=== PATIENT | female | born 1935 | race Caucasian/White ===

== ENCOUNTER 2019-12-26 13:03 | Inpatient (IN) ==
[2019-12-26] MEDS ORDERED: Naloxone 0.4 MG/ML INJ IVP PRN (15:50)
[2019-12-26] MEDS ORDERED: Ondansetron 4 MG/2 ML VIAL IVP PRN (15:50)
[2019-12-26 16:20] LABS: Basophils % 0.5 %; Eosinophils % 0.8 %; Hematocrit 44.7 % (35.3-44.9); Immature Granulocytes % 0.3 % (0-4); Lymphocytes # 0.7 K/mcL (0.6-4.6); Lymphocytes % 19.1 %; Mean Corpuscular HGB Conc 31.3 g/dL (31.6-35.5); Mean Corpuscular Hemoglobin 29.9 pg (28.0-33.3); Mean Corpuscular Volume 95.5 fL (83.0-100.0); Mean Platelet Volume 10.2 fL (9.4-12.4); Monocytes # 0.2 K/mcL (0.0-1.3); Monocytes % 4.5 %; Neutrophils # 2.8 K/mcL (1.6-8.9); Platelet Count 170 K/mcL (140-400); Red Blood Count 4.68 M/mcL (3.82-4.97); Red Cell Distribution Width 13.9 % (11.5-14.5); Segmented Neutrophils % 74.8 %; White Blood Count 3.8 K/mcL (4.3-11.1)
[2019-12-26 16:25] LABS: VBG HCO3 37 mEq/L (21-27); VBG PCO2 69 mmHg (41-51); VBG PH 7.34 pH Units (7.32-7.42); VBG PO2 49 mmHg (25-50)
[2019-12-26 16:43] LABS: BUN/Creatinine Ratio 22 (6-26); Blood Urea Nitrogen 20 mg/dL (8-23); Calcium 9.5 mg/dL (8.6-10.3); Carbon Dioxide 36 mEq/L (23-29); Chloride 98 mEq/L (98-107); Glucose 132 mg/dL (70-105); Magnesium 1.3 mg/dL (1.6-2.6); Osmolality,Calculated 294 (280-300); Potassium 3.7 mEq/L (3.5-5.1); Sodium 140 mEq/L (136-145); Troponin I 0.03 ng/mL (< 0.04); eGFR For African Americans > 60 (> 60); eGFR For Non-African Americans 59 (> 60)
[2019-12-26] MEDS ORDERED: Ipratropium/Albuterol Neb 3 ML IH PRN (18:23)
[2019-12-26] MEDS ORDERED: Perflutren Lipid Microsphere 1.3 ML in 0.9 % Sodium Chloride 8.7 ML IVP ONE (18:24)
[2019-12-26] MEDS: Furosemide 40 MG/4 ML VIAL IVP SCH (19:41)
[2019-12-26] MEDS: Acetaminophen 325 MG TABLET PO PRN (19:53)
[2019-12-26] MEDS ORDERED: *HR* OxyCODONE Immed Rel 5 MG TABLET PO ONE (20:07)
[2019-12-26] MEDS: *HR* Heparin 5,000 UNIT/ML VIAL SQ SCH (22:52)
[2019-12-26] MEDS: carvediloL 6.25 MG TABLET PO SCH (22:52)
[2019-12-27 04:44] LABS: VBG HCO3 36 mEq/L (21-27); VBG PCO2 62 mmHg (41-51); VBG PH 7.37 pH Units (7.32-7.42); VBG PO2 51 mmHg (25-50)
[2019-12-27 04:55] LABS: Basophils % 0.3 %; Eosinophils % 0.2 %; Hematocrit 42.7 % (35.3-44.9); Hemoglobin 13.5 g/dL (11.5-15.4); Immature Granulocytes % 0.5 % (0-4); Lymphocytes # 1.1 K/mcL (0.6-4.6); Lymphocytes % 16.5 %; Mean Corpuscular HGB Conc 31.6 g/dL (31.6-35.5); Mean Corpuscular Hemoglobin 29.5 pg (28.0-33.3); Mean Corpuscular Volume 93.2 fL (83.0-100.0); Mean Platelet Volume 10.2 fL (9.4-12.4); Monocytes # 0.4 K/mcL (0.0-1.3); Monocytes % 5.3 %; Neutrophils # 5.1 K/mcL (1.6-8.9); Platelet Count 187 K/mcL (140-400); Red Blood Count 4.58 M/mcL (3.82-4.97); Red Cell Distribution Width 13.9 % (11.5-14.5); Segmented Neutrophils % 77.2 %; White Blood Count 6.6 K/mcL (4.3-11.1)
[2019-12-27 05:06] LABS: BUN/Creatinine Ratio 24 (6-26); Blood Urea Nitrogen 24 mg/dL (8-23); Calcium 9.3 mg/dL (8.6-10.3); Carbon Dioxide 37 mEq/L (23-29); Chloride 92 mEq/L (98-107); Glucose 126 mg/dL (70-105); Magnesium 1.7 mg/dL (1.6-2.6); Osmolality,Calculated 288 (280-300); Potassium 3.4 mEq/L (3.5-5.1); Sodium 136 mEq/L (136-145); eGFR For African Americans > 60 (> 60); eGFR For Non-African Americans 54 (> 60)
[2019-12-27] MEDS ORDERED: *HR* OxyCODONE Immed Rel 5 MG TABLET PO ONE (05:29)
[2019-12-27] MEDS: *HR* Heparin 5,000 UNIT/ML VIAL SQ SCH ×3 (05:41→21:17)
[2019-12-27] MEDS: carvediloL 6.25 MG TABLET PO SCH ×2 (10:45→17:46)
[2019-12-27] MEDS: Furosemide 40 MG/4 ML VIAL IVP SCH (10:48)
[2019-12-27] MEDS: Aspirin Enteric Coated 81 MG Tablet PO SCH (10:48)
[2019-12-27] MEDS: Acetaminophen 325 MG TABLET PO PRN (10:55)
[2019-12-27] MEDS: Gabapentin 400 MG CAPSULE PO SCH (21:12)
[2019-12-27] MEDS: traZODone 50 MG TABLET PO SCH (21:14)
[2019-12-28 01:32] LABS: Basophils % 0.3 %; Eosinophils % 0.3 %; Hematocrit 41.7 % (35.3-44.9); Hemoglobin 13.3 g/dL (11.5-15.4); Immature Granulocytes % 0.3 % (0-4); Lymphocytes # 1.4 K/mcL (0.6-4.6); Mean Corpuscular HGB Conc 31.9 g/dL (31.6-35.5); Mean Corpuscular Hemoglobin 29.9 pg (28.0-33.3); Mean Corpuscular Volume 93.7 fL (83.0-100.0); Mean Platelet Volume 10.5 fL (9.4-12.4); Monocytes # 0.4 K/mcL (0.0-1.3); Monocytes % 6.6 %; Neutrophils # 4.6 K/mcL (1.6-8.9); Platelet Count 180 K/mcL (140-400); Red Blood Count 4.45 M/mcL (3.82-4.97); Red Cell Distribution Width 14.2 % (11.5-14.5); Segmented Neutrophils % 71.5 %; White Blood Count 6.5 K/mcL (4.3-11.1)
[2019-12-28 01:36] LABS: VBG HCO3 34 mEq/L (21-27); VBG PCO2 54 mmHg (41-51); VBG PO2 111 mmHg (25-50)
[2019-12-28 01:44] LABS: BUN/Creatinine Ratio 33 (6-26); Blood Urea Nitrogen 28 mg/dL (8-23); Calcium 8.8 mg/dL (8.6-10.3); Carbon Dioxide 34 mEq/L (23-29); Chloride 98 mEq/L (98-107); Glucose 126 mg/dL (70-105); Magnesium 1.4 mg/dL (1.6-2.6); Osmolality,Calculated 293 (280-300); Potassium 4.1 mEq/L (3.5-5.1); Sodium 138 mEq/L (136-145); eGFR For African Americans > 60 (> 60); eGFR For Non-African Americans > 60 (> 60)
[2019-12-28] MEDS: *HR* Heparin 5,000 UNIT/ML VIAL SQ SCH ×3 (05:51→22:26)
[2019-12-28] MEDS: Acetaminophen 325 MG TABLET PO PRN ×2 (05:57→22:26)
[2019-12-28] MEDS: Ascorbic Acid 500 MG TABLET PO SCH (08:48)
[2019-12-28] MEDS: Furosemide 40 MG/4 ML VIAL IVP SCH (08:48)
[2019-12-28] MEDS: Aspirin Enteric Coated 81 MG Tablet PO SCH (08:50)
[2019-12-28] MEDS: Gabapentin 400 MG CAPSULE PO SCH ×3 (08:50→22:26)
[2019-12-28] MEDS: carvediloL 6.25 MG TABLET PO SCH ×2 (08:50→17:34)
[2019-12-28] MEDS: amLODIPine 5 MG TABLET PO SCH (08:52)
[2019-12-28] MEDS ORDERED: NON-FORMULARY MEDICATION 1 EACH EACH (Losartan/Hydrochlorothiazide [Losartan-Hctz 100-25 M PO SCH (09:00)
[2019-12-28] MEDS ORDERED: Perflutren Lipid Microsphere 1.3 ML in 0.9 % Sodium Chloride 8.7 ML IVP ONE (09:43)
[2019-12-28] MEDS: traZODone 50 MG TABLET PO SCH (22:26)
[2019-12-29] MEDS: *HR* Heparin 5,000 UNIT/ML VIAL SQ SCH ×3 (05:38→21:54)
[2019-12-29 07:10] LABS: Basophils % 0.3 %; Eosinophils % 0.5 %; Hematocrit 46.4 % (35.3-44.9); Hemoglobin 14.6 g/dL (11.5-15.4); Immature Granulocytes % 0.2 % (0-4); Lymphocytes # 1.4 K/mcL (0.6-4.6); Lymphocytes % 22.8 %; Mean Corpuscular HGB Conc 31.5 g/dL (31.6-35.5); Mean Corpuscular Hemoglobin 30.7 pg (28.0-33.3); Mean Corpuscular Volume 97.5 fL (83.0-100.0); Mean Platelet Volume 10.4 fL (9.4-12.4); Monocytes # 0.4 K/mcL (0.0-1.3); Monocytes % 6.2 %; Neutrophils # 4.3 K/mcL (1.6-8.9); Platelet Count 196 K/mcL (140-400); Red Blood Count 4.76 M/mcL (3.82-4.97); Red Cell Distribution Width 14.1 % (11.5-14.5); White Blood Count 6.1 K/mcL (4.3-11.1)
[2019-12-29 07:26] LABS: BUN/Creatinine Ratio 35 (6-26); Blood Urea Nitrogen 27 mg/dL (8-23); Calcium 9.2 mg/dL (8.6-10.3); Carbon Dioxide 34 mEq/L (23-29); Chloride 97 mEq/L (98-107); Glucose 107 mg/dL (70-105); Magnesium 1.9 mg/dL (1.6-2.6); Osmolality,Calculated 292 (280-300); Sodium 138 mEq/L (136-145); eGFR For African Americans > 60 (> 60); eGFR For Non-African Americans > 60 (> 60)
[2019-12-29] MEDS: Gabapentin 400 MG CAPSULE PO SCH ×3 (08:23→21:54)
[2019-12-29] MEDS: Ascorbic Acid 500 MG TABLET PO SCH (08:23)
[2019-12-29] MEDS: carvediloL 6.25 MG TABLET PO SCH ×2 (08:23→17:01)
[2019-12-29] MEDS: amLODIPine 5 MG TABLET PO SCH (08:23)
[2019-12-29] MEDS: Aspirin Enteric Coated 81 MG Tablet PO SCH (08:23)
[2019-12-29] MEDS: Furosemide 40 MG/4 ML VIAL IVP SCH (08:24)
[2019-12-29] MEDS: Acetaminophen 325 MG TABLET PO PRN ×2 (08:31→17:07)
[2019-12-29] MEDS: traZODone 50 MG TABLET PO SCH (21:54)
[2019-12-30] MEDS: Acetaminophen 325 MG TABLET PO PRN ×2 (00:01→07:33)
[2019-12-30 02:35] LABS: Basophils % 0.2 %; Eosinophils # 0.1 K/mcL (0.0-0.6); Eosinophils % 1.3 %; Hematocrit 40.9 % (35.3-44.9); Immature Granulocytes % 0.3 % (0-4); Lymphocytes # 1.5 K/mcL (0.6-4.6); Lymphocytes % 23.2 %; Mean Corpuscular HGB Conc 31.8 g/dL (31.6-35.5); Mean Corpuscular Hemoglobin 30.6 pg (28.0-33.3); Mean Corpuscular Volume 96.2 fL (83.0-100.0); Mean Platelet Volume 10.2 fL (9.4-12.4); Monocytes # 0.5 K/mcL (0.0-1.3); Monocytes % 8.2 %; Neutrophils # 4.2 K/mcL (1.6-8.9); Platelet Count 172 K/mcL (140-400); Red Blood Count 4.25 M/mcL (3.82-4.97); Red Cell Distribution Width 13.9 % (11.5-14.5); Segmented Neutrophils % 66.8 %; White Blood Count 6.3 K/mcL (4.3-11.1)
[2019-12-30 02:57] LABS: BUN/Creatinine Ratio 34 (6-26); Blood Urea Nitrogen 25 mg/dL (8-23); Calcium 8.3 mg/dL (8.6-10.3); Carbon Dioxide 33 mEq/L (23-29); Chloride 99 mEq/L (98-107); Glucose 123 mg/dL (70-105); Magnesium 1.7 mg/dL (1.6-2.6); Osmolality,Calculated 290 (280-300); Sodium 137 mEq/L (136-145); eGFR For African Americans > 60 (> 60); eGFR For Non-African Americans > 60 (> 60)
[2019-12-30] MEDS: *HR* Heparin 5,000 UNIT/ML VIAL SQ SCH (06:43)
[2019-12-30] MEDS: carvediloL 6.25 MG TABLET PO SCH (07:34)
[2019-12-30] MEDS: Aspirin Enteric Coated 81 MG Tablet PO SCH (07:34)
[2019-12-30] MEDS: Ascorbic Acid 500 MG TABLET PO SCH (07:34)
[2019-12-30] MEDS: Gabapentin 400 MG CAPSULE PO SCH (07:35)
[2019-12-30] MEDS: amLODIPine 5 MG TABLET PO SCH (07:36)
[2019-12-30 08:19] VITALS: BP 173/70
[2019-12-30] MEDS ORDERED: Furosemide 40 MG TABLET PO SCH (09:00)
== END 2019-12-30 12:31 | disposition home health service (06) | DRG 189 ==
LOC: 3ANU → SUATTDRO 15:29
PROVIDERS: ADMIT Pharmacist; ATTEND Pharmacist

== ENCOUNTER 2020-04-15 14:01 | Inpatient (IN) ==
[2020-04-15 14:46] LABS: Basophils % 0.3 %; Eosinophils # 0.1 K/mcL (0.0-0.6); Eosinophils % 1.8 %; Hematocrit 34.8 % (35.3-44.9); Hemoglobin 11.2 g/dL (11.5-15.4); Immature Granulocytes % 0.3 % (0-4); Lymphocytes # 1.4 K/mcL (0.6-4.6); Lymphocytes % 20.8 %; Mean Corpuscular HGB Conc 32.2 g/dL (31.6-35.5); Mean Corpuscular Hemoglobin 32.1 pg (28.0-33.3); Mean Corpuscular Volume 99.7 fL (83.0-100.0); Mean Platelet Volume 10.9 fL (9.4-12.4); Monocytes # 0.6 K/mcL (0.0-1.3); Monocytes % 9.6 %; Neutrophils # 4.4 K/mcL (1.6-8.9); Platelet Count 156 K/mcL (140-400); Red Blood Count 3.49 M/mcL (3.82-4.97); Red Cell Distribution Width 14.8 % (11.5-14.5); Segmented Neutrophils % 67.2 %; White Blood Count 6.6 K/mcL (4.3-11.1)
[2020-04-15] MEDS ORDERED: Furosemide 40 MG/4 ML VIAL IVP ONE (15:05)
[2020-04-15 15:07] LABS: Calcium 8.9 mg/dL (8.6-10.3); Potassium 3.7 mEq/L (3.5-5.1)
[2020-04-15 15:10] LABS: Troponin I 0.04 ng/mL (< 0.04)
[2020-04-15] MEDS ORDERED: Furosemide 80 MG in 0.9 % Sodium Chloride 50 ML IVPB ONE (16:25)
[2020-04-15] MEDS ORDERED: Ondansetron 4 MG/2 ML VIAL IVP PRN (16:52)
[2020-04-15] MEDS ORDERED: Naloxone 0.4 MG/ML INJ IVP PRN (16:52)
[2020-04-15] MEDS ORDERED: Ipratropium/Albuterol Neb 3 ML IH PRN (17:51)
[2020-04-15] MEDS: Furosemide 40 MG/4 ML VIAL IVP SCH (20:45)
[2020-04-15] MEDS: Gabapentin 400 MG CAPSULE PO SCH (20:45)
[2020-04-15] MEDS: traZODone 50 MG TABLET PO SCH (20:45)
[2020-04-15] MEDS: *HR* Heparin 5,000 UNIT/ML VIAL SQ SCH (20:45)
[2020-04-15] MEDS: *HR* HYDROcodone/Acet 5/325 mg TABLET PO PRN (20:45)
[2020-04-15] MEDS ORDERED: carvediloL 6.25 MG TABLET PO SCH (21:00)
[2020-04-16] MEDS ORDERED: *HR* OxyCODONE Immed Rel 5 MG TABLET PO ONE (01:15)
[2020-04-16 01:48] LABS: Basophils % 0.4 %; Eosinophils # 0.2 K/mcL (0.0-0.6); Eosinophils % 2.9 %; Hematocrit 40.5 % (35.3-44.9); Hemoglobin 12.7 g/dL (11.5-15.4); Immature Granulocytes % 0.4 % (0-4); Lymphocytes # 1.6 K/mcL (0.6-4.6); Lymphocytes % 21.1 %; Mean Corpuscular HGB Conc 31.4 g/dL (31.6-35.5); Mean Corpuscular Hemoglobin 31.5 pg (28.0-33.3); Mean Corpuscular Volume 100.5 fL (83.0-100.0); Mean Platelet Volume 11.2 fL (9.4-12.4); Monocytes # 0.6 K/mcL (0.0-1.3); Neutrophils # 5.1 K/mcL (1.6-8.9); Platelet Count 172 K/mcL (140-400); Red Blood Count 4.03 M/mcL (3.82-4.97); Red Cell Distribution Width 14.6 % (11.5-14.5); Segmented Neutrophils % 67.2 %; White Blood Count 7.6 K/mcL (4.3-11.1)
[2020-04-16 02:11] LABS: Calcium 9.3 mg/dL (8.6-10.3); Magnesium 1.3 mg/dL (1.6-2.6); Phosphorous 3.6 mg/dL (2.7-4.5); Potassium 3.1 mEq/L (3.5-5.1)
[2020-04-16] MEDS ORDERED: *HR* Labetalol 20 MG/4 ML SYRINGE IVP ONE (04:22)
[2020-04-16] MEDS ORDERED: NIFEdipine 10 MG CAPSULE PO ONE ×2 (05:55→19:46)
[2020-04-16] MEDS: *HR* Heparin 5,000 UNIT/ML VIAL SQ SCH ×2 (06:02→18:48)
[2020-04-16] MEDS: *HR* HYDROcodone/Acet 5/325 mg TABLET PO PRN ×2 (07:23→18:52)
[2020-04-16] MEDS: Aspirin Enteric Coated 81 MG Tablet PO SCH (07:54)
[2020-04-16] MEDS: Furosemide 40 MG/4 ML VIAL IVP SCH ×2 (07:55→20:28)
[2020-04-16] MEDS: Gabapentin 400 MG CAPSULE PO SCH ×3 (07:55→20:28)
[2020-04-16] MEDS: carvediloL 6.25 MG TABLET PO SCH ×2 (07:55→15:56)
[2020-04-16] MEDS ORDERED: Potassium Chloride 40 MEQ, Lidocaine 1% 2 ML in 0.9 % Sodium Chloride 500 ML IVPB ONE (08:51)
[2020-04-16] MEDS ORDERED: amLODIPine 5 MG TABLET PO SCH (09:00)
[2020-04-16] MEDS: Nystatin POWDER 30 GM BOTTLE TP SCH ×2 (15:35→18:52)
[2020-04-16] MEDS: traZODone 50 MG TABLET PO SCH (20:28)
[2020-04-17] MEDS ORDERED: Acetaminophen IV 1,000 MG/100 ML INFUS..BTL IVPB ONE (00:54)
[2020-04-17] MEDS ORDERED: *HR* Metoprolol 5 MG/5 ML VIAL IVP ONE (03:15)
[2020-04-17] MEDS: *HR* Heparin 5,000 UNIT/ML VIAL SQ SCH (04:06)
[2020-04-17] MEDS: *HR* HYDROcodone/Acet 5/325 mg TABLET PO PRN (09:01)
[2020-04-17] MEDS: Aspirin Enteric Coated 81 MG Tablet PO SCH (09:01)
[2020-04-17] MEDS: Nystatin POWDER 30 GM BOTTLE TP SCH (09:02)
[2020-04-17] MEDS: Furosemide 40 MG/4 ML VIAL IVP SCH (09:02)
[2020-04-17] MEDS: carvediloL 6.25 MG TABLET PO SCH (09:02)
[2020-04-17] MEDS: Gabapentin 400 MG CAPSULE PO SCH (09:02)
[2020-04-17 10:05] LABS: Basophils % 0.4 %; Eosinophils # 0.2 K/mcL (0.0-0.6); Eosinophils % 2.3 %; Hematocrit 40.4 % (35.3-44.9); Hemoglobin 12.7 g/dL (11.5-15.4); Immature Granulocytes % 0.4 % (0-4); Lymphocytes # 1.4 K/mcL (0.6-4.6); Lymphocytes % 17.5 %; Mean Corpuscular HGB Conc 31.4 g/dL (31.6-35.5); Mean Corpuscular Hemoglobin 31.7 pg (28.0-33.3); Mean Corpuscular Volume 100.7 fL (83.0-100.0); Mean Platelet Volume 10.4 fL (9.4-12.4); Monocytes # 0.6 K/mcL (0.0-1.3); Monocytes % 7.1 %; Neutrophils # 5.7 K/mcL (1.6-8.9); Platelet Count 197 K/mcL (140-400); Red Blood Count 4.01 M/mcL (3.82-4.97); Red Cell Distribution Width 14.2 % (11.5-14.5); Segmented Neutrophils % 72.3 %; White Blood Count 7.8 K/mcL (4.3-11.1)
[2020-04-17 10:23] LABS: BUN/Creatinine Ratio 24 (6-26); Blood Urea Nitrogen 20 mg/dL (8-23); Calcium 9.1 mg/dL (8.6-10.3); Carbon Dioxide 38 mEq/L (23-29); Chloride 96 mEq/L (98-107); Glucose 139 mg/dL (70-105); Magnesium 1.7 mg/dL (1.6-2.6); Osmolality,Calculated 297 (280-300); Potassium 3.4 mEq/L (3.5-5.1); Sodium 141 mEq/L (136-145); eGFR For African Americans > 60 (> 60); eGFR For Non-African Americans > 60 (> 60)
[2020-04-17 10:38] VITALS: BP 147/64
== END 2020-04-17 14:32 | disposition home health service (06) | DRG 291 ==
LOC: 3NENU 14:01 → EMEROOARM 14:01 → SUATTDRO 19:19 → 3NENU 20:22
PROVIDERS: ADMIT Internal Medicine; ATTEND Family Medicine

== ENCOUNTER 2020-06-21 17:24 | Inpatient (IN) ==
[2020-06-21 18:29] LABS: Basophils % 0.3 %; Eosinophils # 0.1 K/mcL (0.0-0.6); Eosinophils % 2.2 %; Hematocrit 38.5 % (35.3-44.9); Hemoglobin 11.8 g/dL (11.5-15.4); Immature Granulocytes % 0.3 % (0-4); Lymphocytes # 1.4 K/mcL (0.6-4.6); Lymphocytes % 22.5 %; Mean Corpuscular HGB Conc 30.6 g/dL (31.6-35.5); Mean Corpuscular Hemoglobin 30.3 pg (28.0-33.3); Mean Corpuscular Volume 98.7 fL (83.0-100.0); Mean Platelet Volume 11.4 fL (9.4-12.4); Monocytes # 0.5 K/mcL (0.0-1.3); Monocytes % 7.5 %; Neutrophils # 4.3 K/mcL (1.6-8.9); Platelet Count 191 K/mcL (140-400); Red Cell Distribution Width 12.7 % (11.5-14.5); Segmented Neutrophils % 67.2 %; White Blood Count 6.4 K/mcL (4.3-11.1)
[2020-06-21 18:55] LABS: ABG Base Excess 5 mEq/L (-2 to 3); ABG HCO3 33 mEq/L (21-27); ABG Oxygen Saturation 96 % (95-98); ABG PCO2 62 mmHg (35-45); ABG PH 7.33 pH Units (7.32-7.45); ABG PO2 94 mmHg (85-104); ABG TCO2 35 mEq/L (20-26)
[2020-06-21 19:12] LABS: Potassium 4.9 mEq/L (3.5-5.1); Troponin I 0.03 ng/mL (< 0.04)
[2020-06-21 19:22] LABS: Adenovirus Not Detected (Not Detect); Bordetella Pertussis Not Detected (Not Detect); Chlamydophila pneumoniae Not Detected (Not Detect); Coronavirus 229E Not Detected (Not Detect); Coronavirus HKU1 Not Detected (Not Detect); Coronavirus NL63 Not Detected (Not Detect); Coronavirus OC43 Not Detected (Not Detect); Human Metapneumovirus Not Detected (Not Detect); Human Rhinovirus/Enterovirus Not Detected (Not Detect); Influenza A Subtype 2009 H1 Not Detected (Not Detect); Influenza B Not Detected (Not Detect); Mycoplasma pneumoniae Not Detected (Not Detect); Parainfluenza Virus 1 Not Detected (Not Detect); Parainfluenza Virus 2 Not Detected (Not Detect); Parainfluenza Virus 3 Not Detected (Not Detect); Parainfluenza Virus 4 Not Detected (Not Detect); Respiratory Syncytial Virus Not Detected (Not Detect); SARS-CoV-2 Not Detected (Not Detect)
[2020-06-21] MEDS ORDERED: Furosemide 40 MG/4 ML VIAL IVP ONE (20:05)
[2020-06-21] MEDS ORDERED: Isovue-370 500 ML BOTTLE IVP ONE (20:30)
[2020-06-21] MEDS ORDERED: *HR* Heparin 5,000 UNIT/ML VIAL IVP PRN ×2 (20:35)
[2020-06-21] MEDS ORDERED: *HR* Heparin 5,000 UNIT/ML VIAL IVP ONE (20:35)
[2020-06-21] MEDS: Heparin 25,000UNIT/250ML 1/2NS 25,000 UNIT/250 ML IV.SOLN IVC SCH (21:24)
[2020-06-21 21:51] LABS: Hematocrit 38.9 % (35.3-44.9); Hemoglobin 12.1 g/dL (11.5-15.4); Mean Corpuscular HGB Conc 31.1 g/dL (31.6-35.5); Mean Corpuscular Hemoglobin 30.9 pg (28.0-33.3); Mean Corpuscular Volume 99.2 fL (83.0-100.0); Mean Platelet Volume 11.4 fL (9.4-12.4); Platelet Count 179 K/mcL (140-400); Red Blood Count 3.92 M/mcL (3.82-4.97); Red Cell Distribution Width 12.5 % (11.5-14.5); White Blood Count 5.9 K/mcL (4.3-11.1)
[2020-06-21 21:53] LABS: Heparin anti-factor XA UFH < 0.04 IU/mL (0.30-0.70)
[2020-06-21 21:54] LABS: INR 1.1; Prothrombin Time 12.6 Seconds (9.4-12.1)
[2020-06-21] MEDS ORDERED: tiZANidine 4 MG TABLET PO PRN (23:20)
[2020-06-22] MEDS ORDERED: Perflutren Lipid Microsphere 1.3 ML in 0.9 % Sodium Chloride 8.7 ML IVP PRN (00:15)
[2020-06-22 01:42] LABS: Bilirubin,Urine Negative (Negative); Blood,Urine Large (Negative); Clarity,Urine Clear (Clear); Color,Urine Colorless (Yellow); Glucose,Urine (UA) Normal (Normal); Hyaline Casts,Urine Few per lpf (None Seen); Ketones,Urine Negative (Negative); Leukocyte Esterase,Urine Negative (Negative); Nitrite,Urine Negative (Negative); Protein,Urine Negative (Neg-Trace); RBC,Urine TNTC per hpf (0-3); Specific Gravity,Urine 1.009 (1.010-1.025); Urobilinogen,Urine Normal (Normal); WBC,Urine 0-3 per hpf (0-3)
[2020-06-22] MEDS ORDERED: Furosemide 40 MG/4 ML VIAL ONE (02:45)
[2020-06-22 02:58] LABS: ABG Base Excess 7 mEq/L (-2 to 3); ABG HCO3 34 mEq/L (21-27); ABG Oxygen Saturation 82 % (95-98); ABG PCO2 60 mmHg (35-45); ABG PH 7.36 pH Units (7.32-7.45); ABG PO2 50 mmHg (85-104); ABG TCO2 36 mEq/L (20-26)
[2020-06-22] MEDS: *HR* OxyCODONE/APAP 5/325 TABLET PO PRN ×3 (03:06→22:48)
[2020-06-22] MEDS ORDERED: Furosemide 40 MG/4 ML VIAL IV ONE (03:15)
[2020-06-22 04:59] LABS: Basophils % 0.4 %; Eosinophils # 0.2 K/mcL (0.0-0.6); Eosinophils % 2.2 %; Hematocrit 40.4 % (35.3-44.9); Hemoglobin 12.8 g/dL (11.5-15.4); Immature Granulocytes % 0.4 % (0-4); Lymphocytes # 1.9 K/mcL (0.6-4.6); Lymphocytes % 21.8 %; Mean Corpuscular HGB Conc 31.7 g/dL (31.6-35.5); Mean Corpuscular Hemoglobin 30.9 pg (28.0-33.3); Mean Corpuscular Volume 97.6 fL (83.0-100.0); Mean Platelet Volume 11.7 fL (9.4-12.4); Monocytes # 0.6 K/mcL (0.0-1.3); Monocytes % 6.6 %; Neutrophils # 5.8 K/mcL (1.6-8.9); Platelet Count 207 K/mcL (140-400); Red Blood Count 4.14 M/mcL (3.82-4.97); Red Cell Distribution Width 12.5 % (11.5-14.5); Segmented Neutrophils % 68.6 %; White Blood Count 8.5 K/mcL (4.3-11.1)
[2020-06-22 05:06] LABS: INR 1.2; Prothrombin Time 13.6 Seconds (9.4-12.1)
[2020-06-22 05:25] LABS: Activated Partial Thrombo Time > 360.0 Seconds (26.0-36.0); Heparin anti-factor XA UFH 1.86 IU/mL (0.30-0.70)
[2020-06-22 05:46] LABS: Bilirubin,Total 0.7 mg/dL (0.3-1.0); Calcium 9.4 mg/dL (8.6-10.3); Chol/HDL Ratio 2.5 (0-4.9); Globulin 3.9 g/dL (2.4-3.5); Magnesium 1.7 mg/dL (1.6-2.6); Potassium 3.9 mEq/L (3.5-5.1); Thyroid Stimulating Hormone 3.59 mcIU/mL (0.340-5.600); Total Protein 7.9 g/dL (6.4-8.9)
[2020-06-22] MEDS ORDERED: Furosemide 40 MG/4 ML VIAL IVP SCH (07:30)
[2020-06-22] MEDS: Aspirin Enteric Coated 81 MG Tablet PO SCH (08:28)
[2020-06-22] MEDS: Ascorbic Acid 500 MG TABLET PO SCH (08:28)
[2020-06-22] MEDS: Gabapentin 400 MG CAPSULE PO SCH ×3 (08:28→20:47)
[2020-06-22] MEDS ORDERED: Isovue-370 500 ML BOTTLE IVP ONE (10:16)
[2020-06-22 13:28] LABS: Influenza A PCR Negative (Negative); Influenza B PCR Negative (Negative); Resp. Syncytial Virus PCR Negative (Negative); SARS-CoV-2 by PCR (In House) Negative (Negative)
[2020-06-22] MEDS: traZODone 50 MG TABLET PO SCH (20:47)
[2020-06-22] MEDS: Heparin 25,000UNIT/250ML 1/2NS 25,000 UNIT/250 ML IV.SOLN IVC SCH (21:02)
[2020-06-23] MEDS: *HR* OxyCODONE/APAP 5/325 TABLET PO PRN ×3 (05:40→22:29)
[2020-06-23] MEDS: Magnesium Oxide 400 MG TABLET PO SCH (08:07)
[2020-06-23] MEDS: Gabapentin 400 MG CAPSULE PO SCH ×3 (08:07→20:22)
[2020-06-23] MEDS: Ascorbic Acid 500 MG TABLET PO SCH (08:07)
[2020-06-23] MEDS: Multivit/Ca/Min/Fe/FA 1 TAB TABLET PO SCH (08:07)
[2020-06-23] MEDS: amLODIPine 5 MG TABLET PO SCH (08:07)
[2020-06-23] MEDS: Aspirin Enteric Coated 81 MG Tablet PO SCH (08:07)
[2020-06-23] MEDS ORDERED: Artificial Tears SOLN 15 ML BOTTLE BOTH EYES PRN (08:51)
[2020-06-23] MEDS ORDERED: Furosemide 40 MG/4 ML VIAL IVP SCH (09:00)
[2020-06-23] MEDS: *HR* Heparin 5,000 UNIT/ML VIAL SQ SCH (16:01)
[2020-06-23] MEDS: Furosemide 40 MG/4 ML VIAL IVP SCH (16:01)
[2020-06-23] MEDS: traZODone 50 MG TABLET PO SCH (20:22)
[2020-06-24 01:58] LABS: Basophils % 0.1 %; Hematocrit 36.5 % (35.3-44.9); Hemoglobin 11.4 g/dL (11.5-15.4); Immature Granulocytes % 0.4 % (0-4); Mean Corpuscular HGB Conc 31.2 g/dL (31.6-35.5); Mean Corpuscular Volume 99.2 fL (83.0-100.0); Mean Platelet Volume 10.7 fL (9.4-12.4); Monocytes # 0.3 K/mcL (0.0-1.3); Monocytes % 3.7 %; Neutrophils # 6.7 K/mcL (1.6-8.9); Platelet Count 182 K/mcL (140-400); Red Blood Count 3.68 M/mcL (3.82-4.97); Red Cell Distribution Width 12.4 % (11.5-14.5); Segmented Neutrophils % 83.8 %; White Blood Count 8.1 K/mcL (4.3-11.1)
[2020-06-24 02:11] LABS: BUN/Creatinine Ratio 26 (6-26); Blood Urea Nitrogen 26 mg/dL (8-23); Calcium 8.6 mg/dL (8.6-10.3); Carbon Dioxide 37 mEq/L (23-29); Chloride 93 mEq/L (98-107); Glucose 194 mg/dL (70-105); Magnesium 1.5 mg/dL (1.6-2.6); Osmolality,Calculated 292 (280-300); Phosphorous 2.2 mg/dL (2.7-4.5); Potassium 3.9 mEq/L (3.5-5.1); Sodium 136 mEq/L (136-145); eGFR For African Americans > 60 (> 60); eGFR For Non-African Americans 53 (> 60)
[2020-06-24] MEDS: *HR* Heparin 5,000 UNIT/ML VIAL SQ SCH ×2 (05:54→16:27)
[2020-06-24] MEDS: Ascorbic Acid 500 MG TABLET PO SCH (09:18)
[2020-06-24] MEDS: amLODIPine 5 MG TABLET PO SCH (09:18)
[2020-06-24] MEDS: Furosemide 40 MG/4 ML VIAL IVP SCH ×2 (09:18→16:27)
[2020-06-24] MEDS: *HR* OxyCODONE/APAP 5/325 TABLET PO PRN ×3 (09:19→23:29)
[2020-06-24] MEDS: Magnesium Oxide 400 MG TABLET PO SCH (09:19)
[2020-06-24] MEDS: Aspirin Enteric Coated 81 MG Tablet PO SCH (09:19)
[2020-06-24] MEDS: Gabapentin 400 MG CAPSULE PO SCH ×3 (09:19→21:10)
[2020-06-24] MEDS: Multivit/Ca/Min/Fe/FA 1 TAB TABLET PO SCH (09:19)
[2020-06-24] MEDS: traZODone 50 MG TABLET PO SCH (21:10)
[2020-06-25 01:39] LABS: Basophils % 0.1 %; Hematocrit 35.9 % (35.3-44.9); Hemoglobin 11.2 g/dL (11.5-15.4); Immature Granulocytes % 0.5 % (0-4); Lymphocytes # 0.9 K/mcL (0.6-4.6); Lymphocytes % 7.5 %; Mean Corpuscular HGB Conc 31.2 g/dL (31.6-35.5); Mean Corpuscular Hemoglobin 30.4 pg (28.0-33.3); Mean Corpuscular Volume 97.3 fL (83.0-100.0); Mean Platelet Volume 10.6 fL (9.4-12.4); Monocytes # 0.6 K/mcL (0.0-1.3); Monocytes % 4.9 %; Neutrophils # 10.5 K/mcL (1.6-8.9); Platelet Count 190 K/mcL (140-400); Red Blood Count 3.69 M/mcL (3.82-4.97); Red Cell Distribution Width 12.6 % (11.5-14.5); White Blood Count 12.1 K/mcL (4.3-11.1)
[2020-06-25 01:59] LABS: BUN/Creatinine Ratio 34 (6-26); Blood Urea Nitrogen 30 mg/dL (8-23); Calcium 8.5 mg/dL (8.6-10.3); Carbon Dioxide 38 mEq/L (23-29); Chloride 94 mEq/L (98-107); Glucose 157 mg/dL (70-105); Magnesium 1.9 mg/dL (1.6-2.6); Osmolality,Calculated 295 (280-300); Phosphorous 2.8 mg/dL (2.7-4.5); Potassium 3.8 mEq/L (3.5-5.1); Sodium 138 mEq/L (136-145); eGFR For African Americans > 60 (> 60); eGFR For Non-African Americans > 60 (> 60)
[2020-06-25] MEDS: *HR* OxyCODONE/APAP 5/325 TABLET PO PRN (05:45)
[2020-06-25] MEDS: *HR* Heparin 5,000 UNIT/ML VIAL SQ SCH (05:45)
[2020-06-25] MEDS: Aspirin Enteric Coated 81 MG Tablet PO SCH (09:29)
[2020-06-25] MEDS: amLODIPine 5 MG TABLET PO SCH (09:29)
[2020-06-25] MEDS: Gabapentin 400 MG CAPSULE PO SCH (09:29)
[2020-06-25] MEDS: Ascorbic Acid 500 MG TABLET PO SCH (09:29)
[2020-06-25] MEDS: Magnesium Oxide 400 MG TABLET PO SCH (09:29)
[2020-06-25] MEDS: Multivit/Ca/Min/Fe/FA 1 TAB TABLET PO SCH (09:29)
[2020-06-25] MEDS: Furosemide 40 MG/4 ML VIAL IVP SCH (09:30)
[2020-06-25 11:18] VITALS: BP 164/71
== END 2020-06-25 14:20 | disposition home health service (06) ==
LOC: EMEROOARM 17:24 → 2ANU 17:24
PROVIDERS: ADMIT Internal Medicine; ATTEND Internal Medicine

== ENCOUNTER 2020-11-30 15:37 | Observation (INO) ==
[2020-11-30] MEDS ORDERED: Furosemide 40 MG/4 ML VIAL IVP ONE (16:30)
[2020-11-30 16:42] LABS: Basophils # 0.1 K/mcL (0.0-0.2); Basophils % 0.7 %; Eosinophils # 0.1 K/mcL (0.0-0.6); Eosinophils % 1.8 %; Hemoglobin 9.9 g/dL (11.5-15.4); Immature Granulocytes % 2.2 % (0-4); Lymphocytes # 1.6 K/mcL (0.6-4.6); Lymphocytes % 24.4 %; Mean Corpuscular HGB Conc 30.9 g/dL (31.6-35.5); Mean Corpuscular Hemoglobin 31.4 pg (28.0-33.3); Mean Corpuscular Volume 101.6 fL (83.0-100.0); Mean Platelet Volume 10.4 fL (9.4-12.4); Monocytes # 0.6 K/mcL (0.0-1.3); Monocytes % 8.5 %; Neutrophils # 4.2 K/mcL (1.6-8.9); Nucleated Red Blood Cells 0.4 /100 WBC (0); Platelet Count 212 K/mcL (140-400); Red Blood Count 3.15 M/mcL (3.82-4.97); Red Cell Distribution Width 14.3 % (11.5-14.5); Segmented Neutrophils % 62.4 %; White Blood Count 6.7 K/mcL (4.3-11.1)
[2020-11-30 17:13] LABS: Alanine Aminotransferase 14 Units/L (7-52); Albumin 3.5 g/dL (3.5-5.7); Albumin/Globulin Ratio 1.2 (1.1-2.2); Alkaline Phosphatase 80 Units/L (34-104); Aspartate Amino Transferase 19 Units/L (13-39); BUN/Creatinine Ratio 20 (6-26); Bilirubin,Direct 0.1 mg/dL (0.0-0.2); Bilirubin,Indirect 0.5 mg/dL (0.0-1.0); Bilirubin,Total 0.6 mg/dL (0.3-1.0); Blood Urea Nitrogen 19 mg/dL (8-23); Calcium 8.9 mg/dL (8.6-10.3); Carbon Dioxide 31 mEq/L (23-29); Chloride 94 mEq/L (98-107); Globulin 2.9 g/dL (2.4-3.5); Glucose 114 mg/dL (70-105); Osmolality,Calculated 283 (280-300); Potassium 3.7 mEq/L (3.5-5.1); Sodium 135 mEq/L (136-145); Total Protein 6.4 g/dL (6.4-8.9); Troponin I 0.04 ng/mL (< 0.04); eGFR For African Americans > 60 (> 60); eGFR For Non-African Americans 55 (> 60)
[2020-11-30 17:22] LABS: INR 1.1; Prothrombin Time 12.8 Seconds (9.4-12.1)
[2020-11-30 17:25] LABS: Activated Partial Thrombo Time 31.7 Seconds (26.0-36.0)
[2020-11-30 17:27] LABS: VBG HCO3 30 mEq/L (21-27); VBG PCO2 46 mmHg (41-51); VBG PH 7.43 pH Units (7.32-7.42); VBG PO2 47 mmHg (25-50)
[2020-11-30] MEDS ORDERED: Melatonin 3 MG TABLET PO PRN (20:59)
[2020-11-30] MEDS ORDERED: Acetaminophen 325 MG TABLET PO PRN (20:59)
[2020-11-30] MEDS ORDERED: Naloxone 0.4 MG/ML INJ IVP PRN (20:59)
[2020-11-30] MEDS ORDERED: Ondansetron 4 MG/2 ML VIAL IVP PRN (20:59)
[2020-12-01] MEDS ORDERED: Perflutren Lipid Microsphere 1.3 ML in 0.9 % Sodium Chloride 8.7 ML IVP PRN (02:18)
[2020-12-01] MEDS: *HR* OxyCODONE/APAP 7.5/325 TABLET PO PRN ×3 (03:43→21:31)
[2020-12-01 05:50] LABS: Hematocrit 29.5 % (35.3-44.9); Hemoglobin 9.5 g/dL (11.5-15.4); Mean Corpuscular HGB Conc 32.2 g/dL (31.6-35.5); Mean Corpuscular Hemoglobin 31.7 pg (28.0-33.3); Mean Corpuscular Volume 98.3 fL (83.0-100.0); Mean Platelet Volume 10.3 fL (9.4-12.4); Nucleated Red Blood Cells 0.3 /100 WBC (0); Platelet Count 225 K/mcL (140-400); Red Cell Distribution Width 14.3 % (11.5-14.5); White Blood Count 6.2 K/mcL (4.3-11.1)
[2020-12-01 06:22] LABS: Alanine Aminotransferase 12 Units/L (7-52); Albumin 3.3 g/dL (3.5-5.7); Albumin/Globulin Ratio 1.2 (1.1-2.2); Alkaline Phosphatase 82 Units/L (34-104); Aspartate Amino Transferase 16 Units/L (13-39); BUN/Creatinine Ratio 16 (6-26); Bilirubin,Total 0.7 mg/dL (0.3-1.0); Blood Urea Nitrogen 14 mg/dL (8-23); Calcium 8.8 mg/dL (8.6-10.3); Carbon Dioxide 35 mEq/L (23-29); Chloride 97 mEq/L (98-107); Globulin 2.8 g/dL (2.4-3.5); Glucose 105 mg/dL (70-105); Magnesium 1.2 mg/dL (1.6-2.6); Osmolality,Calculated 289 (280-300); Phosphorous 3.2 mg/dL (2.7-4.5); Potassium 3.4 mEq/L (3.5-5.1); Sodium 139 mEq/L (136-145); Total Protein 6.1 g/dL (6.4-8.9); Troponin I 0.04 ng/mL (< 0.04); eGFR For African Americans > 60 (> 60); eGFR For Non-African Americans 59 (> 60)
[2020-12-01 06:25] LABS: Monocytes # 0.4 K/mcL (0.0-1.3); Neutrophils # 3.7 K/mcL (1.6-8.9); Platelet Estimate Normal (Normal); Reactive Lymphocytes Present (Not Present)
[2020-12-01] MEDS: *HR* Heparin 5,000 UNIT/ML VIAL SQ SCH ×2 (06:26→17:56)
[2020-12-01] MEDS ORDERED: Furosemide 40 MG/4 ML VIAL IVP SCH (09:00)
[2020-12-01] MEDS: cefTRIAXone 1,000 MG in 0.9 % Sodium Chloride Mini Bag 100 ML IVPB SCH (11:02)
[2020-12-01] MEDS: Aspirin Enteric Coated 81 MG Tablet PO SCH (11:02)
[2020-12-01] MEDS: Gabapentin 400 MG CAPSULE PO SCH ×2 (17:56→19:55)
[2020-12-01] MEDS: traZODone 50 MG TABLET PO SCH (19:55)
[2020-12-02] MEDS ORDERED: tiZANidine 4 MG TABLET PO PRN (01:38)
[2020-12-02] MEDS: *HR* Heparin 5,000 UNIT/ML VIAL SQ SCH ×2 (05:27→17:22)
[2020-12-02] MEDS: *HR* OxyCODONE/APAP 7.5/325 TABLET PO PRN ×2 (08:37→19:30)
[2020-12-02] MEDS: Gabapentin 400 MG CAPSULE PO SCH ×3 (08:38→19:29)
[2020-12-02] MEDS: Aspirin Enteric Coated 81 MG Tablet PO SCH (08:38)
[2020-12-02 08:42] LABS: Hemoglobin 9.7 g/dL (11.5-15.4)
[2020-12-02] MEDS: cefTRIAXone 1,000 MG in 0.9 % Sodium Chloride Mini Bag 100 ML IVPB SCH (08:49)
[2020-12-02 09:02] LABS: BUN/Creatinine Ratio 16 (6-26); Blood Urea Nitrogen 13 mg/dL (8-23); Calcium 8.7 mg/dL (8.6-10.3); Carbon Dioxide 38 mEq/L (23-29); Chloride 95 mEq/L (98-107); Glucose 121 mg/dL (70-105); Osmolality,Calculated 285 (280-300); Sodium 137 mEq/L (136-145); eGFR For African Americans > 60 (> 60); eGFR For Non-African Americans > 60 (> 60)
[2020-12-02] MEDS: Spironolactone 25 MG TABLET PO SCH (10:06)
[2020-12-02] MEDS: Furosemide 20 MG/2 ML VIAL IVP SCH (10:09)
[2020-12-02] MEDS: traZODone 50 MG TABLET PO SCH (19:29)
[2020-12-03] MEDS: *HR* OxyCODONE/APAP 7.5/325 TABLET PO PRN (04:42)
[2020-12-03] MEDS: *HR* Heparin 5,000 UNIT/ML VIAL SQ SCH (04:43)
[2020-12-03 04:51] LABS: BUN/Creatinine Ratio 18 (6-26); Blood Urea Nitrogen 15 mg/dL (8-23); Carbon Dioxide 37 mEq/L (23-29); Chloride 94 mEq/L (98-107); Glucose 135 mg/dL (70-105); Osmolality,Calculated 287 (280-300); Potassium 3.7 mEq/L (3.5-5.1); Sodium 137 mEq/L (136-145); eGFR For African Americans > 60 (> 60); eGFR For Non-African Americans > 60 (> 60)
[2020-12-03 05:10] LABS: Thyroid Stimulating Hormone 1.202 mcIU/mL (0.340-5.600)
[2020-12-03] MEDS: Furosemide 20 MG/2 ML VIAL IVP SCH (09:08)
[2020-12-03] MEDS: Gabapentin 400 MG CAPSULE PO SCH (09:08)
[2020-12-03] MEDS: Spironolactone 25 MG TABLET PO SCH (09:08)
[2020-12-03] MEDS: Aspirin Enteric Coated 81 MG Tablet PO SCH (09:08)
[2020-12-03] MEDS: cefTRIAXone 1,000 MG in 0.9 % Sodium Chloride Mini Bag 100 ML IVPB SCH (09:09)
[2020-12-03 10:37] VITALS: BP 126/50
== END 2020-12-03 14:08 | disposition home health service (06) ==
LOC: 3BNU 15:37 → EMEROOARM 15:37 → SUATTDRO 19:26 → 3BNU 20:00
PROVIDERS: ADMIT Internal Medicine; ATTEND Registered Nurse